=== PATIENT | female | born 1990 | race Two or more races ===

== ENCOUNTER 2024-07-01 23:10 | Emergency (ER) | payer MEDICAID ==
[~2024-07-01] VITALS: Ht 162.6 cm; Wt 60.3 kg
--- NOTE | 2024-07-01 23:24 | ED.PDOC ---
Musculoskeletal HPI Comments 34-year-old female who came to ER due to right hand pain. Patient states for the past 2 weeks she has been having pain on her right index finger. With notable swelling, redness, warmth of the right index finger. Soaking the finger in warm water offered no relief. Denies any recent trauma to the finger. Denies any past medical history. Chief Complaint: Upper extremity Time Seen by MD: 23:22 Reviewed Notes: Nurses Notes Allergies: Coded Allergies: NO KNOWN ALLERGIES (Unverified , 07/01/24) Information Source: Patient Mode of Arrival: Ambulatory Location: Right Extremity Location: Finger 2 Timing: Weeks (2) Prehospital treatment: None Severity: Moderate Able to Move Extremity: Yes Bear Weight: Limited Pain: Moderate Hand Dominance: Right Mechanism: Spontaneous Circumstances: Spontaneous Onset of Symptoms: Spontaneous Symptoms: Swelling, Pain Associated signs and symptoms: Hand pain (Right index finger) Review of Systems: REVIEW OF SYSTEMS: No fever, no chills, or fatigue HEENT: No sore throat, no earache, no congestion, no neck pain. Cardiac: No chest pain. No palpitations. Lungs: No shortness of breath, no cough. GI: No nausea, no vomiting, no diarrhea, no constipation, no abdominal pain : No dysuria, frequency, or urgency. No hematuria. Musculoskeletal: No joint pain , no joint swelling, no extremity edema (+) right index finger pain and swelling Skin: No rash, no itching. Neuro: No headache, no dizziness, no weakness Vital Signs Vital Signs Date Time Temp Pulse Resp B/P (MAP) Pulse Ox O2 Delivery O2 Flow Rate FiO2 07/01/24 23:16 97.6 83 16 122/88 (99) 96 Physical Exam General: Awake, alert and oriented. No acute distress. Skin: Skin in warm, dry and intact without rashes or lesions. HEENT: The head is normocephalic and atraumatic. Conjunctivae are clear without exudates or hemorrhage. Sclera is non-icteric. Neck: Normal range of motion. No JVD. Cardiac: Regular rate Respiratory: No signs of respiratory distress. No Stridor. Extremities: Right index finger mildly swollen, generally tender to palpation, mildly erythematous, no wound, blister, fluctuance, discharge. Decreased range of motion PIP and DP joints. Prosthetic finger nails noted Neurological: The patient is awake, alert and oriented to person, place, and time with normal speech. Speech is clear. There is no facial asymmetry. Psychiatric: Appropriate mood and affect. Good judgement and insight. No visual or auditory hallucinations. No suicidal or homicidal ideation. Past Medical History PAST MEDICAL HISTORY: Denies Surgical History: Denies all surgeries INSECTICIDE MIXER History: Denies all INSECTICIDE MIXER Hx Family History Family History: Reviewed,noncontributory to illness Social History Smoker: Non-Smoker Alcohol: Denies ETOH Use Drugs: Denies Drug Use Lives In: Home Was a procedure done? Was a procedure done?: No Differential Diagnosis EXT Differential Diagnosis: Cellulitis, Fracture, Sprain, Strain, Arthritis Other Differential Diagnosis Paronychia, felon, tenosynovitis, other X-Ray, Labs, Meds, VS Vital Signs Date Time Temp Pulse Resp B/P (MAP) Pulse Ox O2 Delivery O2 Flow Rate FiO2 07/01/24 23:16 97.6 83 16 122/88 (99) 96 Time of 1ST Reevaluation: 23:19 Reevaluation 1ST: Unchanged Patient Education/Counseling: Diagnosis, Treatment Family Education/Counseling: No Family Present Departure 1 Departure Time of Disposition: 23:31 Impression: Primary Impression: Cellulitis Disposition: 01 HOME / SELF CARE / HOMELESS Condition: Good Additional Instructions: ED DISCHARGE INSTRUCTIONS Instructions: Please read all instructions provided in this packet carefully. Although you have been discharged from the Emergency Department, this does not mean that you have a "clean bill of health". No definitive diagnosis for your symptoms has been made today. It is possible that you are in the process of developing a serious illness. This is why you must return to the ED without fail if any new or worsening symptoms (especially if your symptoms include chest pain, trouble breathing, abdominal pain, fever, headache, confusion, trouble seeing, or trouble walking) It is also very important that you see a primary care doctor within the next 3-5 days to follow up. If you are unable to get an appointment, return to the ED for re-evaluation. Cellulitis: Care Instructions Your Care Instructions Cellulitis is a skin infection caused by bacteria, most often strep or staph. It often occurs after a break in the skin from a scrape, cut, bite, or puncture, or after a rash. Cellulitis may be treated without doing tests to find out what caused it. But your doctor may do tests, if needed, to look for a specific bacteria, like methicillin-resistant Staphylococcus aureus (MRSA). The doctor has checked you carefully, but problems can develop later. If you notice any problems or new symptoms, get medical treatment right away. Follow-up care is a bello part of your treatment and safety. Be sure to make and go to all appointments, and call your doctor if you are having problems. It's also a good idea to know your test results and keep a list of the medicines you take. How can you care for yourself at home? Take your antibiotics as directed. Do not stop taking them just because you feel better. You need to take the full course of antibiotics. Prop up the infected area on pillows to reduce pain and swelling. Try to keep the area above the level of your heart as often as you can. If your doctor told you how to care for your wound, follow your doctor's instructions. If you did not get instructions, follow this general advice: Wash the wound with clean water 2 times a day. Don't use hydrogen peroxide or alcohol, which can slow healing. You may cover the wound with a thin layer of petroleum jelly, such as Vaseline, and a nonstick bandage. Apply more petroleum jelly and replace the bandage as needed. Be safe with medicines. Take pain medicines exactly as directed. If the doctor gave you a prescription medicine for pain, take it as prescribed. If you are not taking a prescription pain medicine, ask your doctor if you can take an [id number] medicine. To prevent cellulitis in the future Try to prevent cuts, scrapes, or other injuries to your skin. Cellulitis most often occurs where there is a break in the skin. If you get a scrape, cut, mild burn, or bite, wash the wound with clean water as soon as you can to help avoid infection. Don't use hydrogen peroxide or alcohol, which can slow healing. If you have swelling in your legs (edema), support stockings and good skin care may help prevent leg sores and cellulitis. Take care of your feet, especially if you have diabetes or other conditions that increase the risk of infection. Wear shoes and socks. Do not go barefoot. If you have athlete's foot or other skin problems on your feet, talk to your doctor about how to treat them. When should you call for help? Call your doctor now or seek immediate medical care if: You have signs that your infection is getting worse, such as: Increased pain, swelling, warmth, or redness. Red streaks leading from the area. Pus draining from the area. A fever. You get a rash. Watch closely for changes in your health, and be sure to contact your doctor if: You do not get better as expected. Credits for Cellulitis: Care Instructions Current as of: June 05, 2023 Author: [facility] [facility] [employer] Staff Clinical Review Board All [employer] education is reviewed by a team that includes physicians, nurses, advanced practitioners, registered dieticians, and other healthcare professionals. e-Prescriptions Cephalexin (KEFLEX CAPSULE) 250 Mg Cp 500 MG PO BID for 5 Days, #20 CAP Prov: LESLIE REYES MD 07/01/24 Comments Patient well-appearing, nontoxic. We will trial antibiotics. Advised prompt follow-up with PCP, return to the ED with any new, worsening or concerning symptoms. Extensive evaluation was performed in attempt to identify or rule out: (See differential diagnosis section) The following tests were ordered, and results were reviewed by me: (See diagnostic results section) The following test were independently interpreted by me: Finger x-ray-no bony injury, no subcutaneous emphysema or foreign body I reviewed and agreed with the following test results read by other providers: N/A I reviewed the following notes from the pt's past medical encounters: (None available at this time) Additional information was gathered from interviewing the following independent historians: N/A Discussion of management or test interpretation with external physician/other qualified health foster care social worker: N/A Decision regarding hospitalization or escalation of hospital level of care: Risks and benefits of admission for further treatment of patient's condition was considered however due to patient's stable condition patient will be discharged to follow up closely or return to care for worsening of condition or inability to follow up. Critical Care Note Critical Care Time?: No Stability Stability form required: No Heart Score Heart Score: Heart Score Response (Comments) Value History N/A 0 EKG N/A 0 Age N/A 0 Risk Factors N/A 0 Troponin N/A 0 Total 0 I personally scribed for LESLIE REYES MD ([email or web address]) on 07/01/24 at 23:24. Electronically submitted by Manny Gregorio ([facility]). LESLIE REYES MD Jul 01, 2024 23:24
[2024-07-01] MEDS ORDERED: CEPH250C PO (23:36)
--- NOTE | 2024-07-01 23:56 | DVH ---
XY R 1ST FINGER XRAY, INDICATION: pain swelling decreased ROM TECHNICAL DATA: Frontal view of the right hand and lateral and oblique views of the right index finge r were obtained. COMPARISON: None Findings/ IMPRESSION: .No acute fracture or dislocation. No radiopaque foreign objects.
[2024-07-02] MEDS: CEPHALEXIN 250 MG CAP PO ONE (00:06)
[2024-07-02] MEDS: KETOROLAC TROMETH 30 MG/ML 1ML VIAL IM ONE (00:06)
[2024-07-02 00:10] VITALS: BP 122/88; PULSE 83; RESP 16; O2SAT 96
== END 2024-07-02 00:13 | disposition home or self-care (01) ==
LOC: ER 23:10
DX: L03.011 Cellulitis of right finger (principal)
CPT/HCPCS: 73140; 96372; 99283; J1885